=== PATIENT | male | born 1990 | race Caucasian/White ===

== ENCOUNTER 2019-01-30 14:31 | Emergency (ER) | payer SELFPAY ==
[~2019-01-30] VITALS: Ht 180.3 cm; Wt 82.6 kg
[2019-01-30 14:35] VITALS: Ht 180.3 cm; Wt 82.6 kg
[2019-01-30 17:14] LABS: PLATELET COUNT 206 x10^3mcL (130-400); RED CELL DISTRIBUTION WIDTH 13.7 % (11.5-14.5)
[2019-01-30 17:15] LABS: BASOPHIL % 0 % (0-2)
[2019-01-30 18:05] LABS: CALCIUM 9.1 mg/dL (8.5-10.1); CARBON DIOXIDE 25.3 mmol/L (21-32); CHLORIDE SERUM 97 mmol/L (98-107); GFR1 > 60 mL/min; GLUCOSE SERUM 88 mg/dL (74-106); POTASSIUM SERUM 3.2 mmol/L (3.5-5.1); SODIUM SERUM 134 mmol/L (136-145)
[2019-01-30 18:09] LABS: ALBUMIN 4.1 g/dL (3.4-5.0); ALKALINE PHOSPHATASE 86 U/L (46-116); ALT/SGPT 40 U/L (16-63); AMYLASE 57 U/L (25-115); AST/SGOT 22 U/L (15-37); BILIRUBIN TOTAL 0.41 mg/dL (0.20-1.00); LIPASE 101 IU/L (73-393); TOTAL PROTEIN, SERUM 7.9 g/dL (6.4-8.2)
[2019-01-30 18:24] VITALS: BP 112/76
== END 2019-01-30 18:24 | disposition home or self-care (01) ==
LOC: ED 14:31
PROVIDERS: Emergency Medicine
DX: J10.1 Influenza due to other identified influenza virus with other respiratory manifestations (principal); R11.2 Nausea with vomiting, unspecified; R19.7 Diarrhea, unspecified; Z88.5 Allergy status to narcotic agent
CPT/HCPCS: 36415; 87804; J1885; J2405; J7030; Q0162

== ENCOUNTER 2019-06-30 11:59 | Emergency (ER) | payer MEDICAID ==
[~2019-06-30] VITALS: Ht 180.3 cm; Wt 78.5 kg
[2019-06-30 12:13] VITALS: Ht 180.3 cm; Wt 78.5 kg
[2019-06-30 13:16] VITALS: BP 133/87
== END 2019-06-30 13:16 | disposition home or self-care (01) ==
LOC: ED 11:59
DX: L02.414 Cutaneous abscess of left upper limb (principal); R03.0 Elevated blood-pressure reading, without diagnosis of hypertension; Z90.89 Acquired absence of other organs; Z88.5 Allergy status to narcotic agent